=== PATIENT | female | born 1990 | race American Indian/Alaskan Native ===

== ENCOUNTER 2018-11-01 02:56 | Emergency (ER) | payer SELFPAY ==
[2018-11-01 03:10] VITALS: BP 98/48
[2018-11-01] MEDS ORDERED: ATIVAN ONE (03:58)
== END 2018-11-01 04:15 | disposition left against medical advice (07) ==
LOC: ED 02:56
DX: J02.9 Acute pharyngitis, unspecified (principal); Z53.21 Procedure and treatment not carried out due to patient leaving prior to being seen by health care provider

== ENCOUNTER 2020-02-23 15:19 | Outpatient (CLI) | payer MEDICAID ==
[2020-02-23 15:42] VITALS: BP 107/55
[2020-02-23] MEDS ORDERED: LACTATED RINGERS 500 ML IV ONE (16:31)
[2020-02-23 17:13] LABS: Bacteria,Urine 1+ /HPF (Negative); Bilirubin,Urine NEG (Negative); Blood,Urine MOD (Negative); Color,Urine Yellow (Yellow); Mucus,Urine FEW /HPF; Protein,Urine <15 mg/dL mg/dL (Negative); Urobilinogen,Urine < 2.0 mg/dL (<2.0)
--- NOTE | 2020-02-23 17:13 | Ultrasound Report ---
Limited OB Ultrasound Biophysical profile HISTORY: leaking fluid. TECHNIQUE: Grayscale and color imaging performed. COMPARISON: No recent comparison ultrasound is available FINDINGS: There is a single intrauterine gestation with cephalic presentation. RENUKA is 14 cm. Heart ra te is 156 bpm. On biophysical profile, the fetus received a score of 2 out of 2 for breathing, movement, posture/ton e, and qualitative RENUKA. Total score was 8 out of 8. IMPRESSION: 1. Single viable intrauterine gestation. 2. Normal BPP. Signer Name: Tab Gottlieb MD Signed: 02/23/2020 5:09 PM Workstation Name: [id number]
== END 2020-02-23 17:45 | disposition home or self-care (01) ==
LOC: APU 15:19 → TRG 15:19
PROVIDERS: ATTEND Obstetrics & Gynecology
DX: O47.03 False labor before 37 completed weeks of gestation, third trimester (principal); Z3A.36 36 weeks gestation of pregnancy
CPT/HCPCS: 59025; 76815; 76819; 81001